=== PATIENT | female | born 1950 ===

== ENCOUNTER 2024-03-30 04:20 | Day surgery (SDC) | payer OTHER ==
[~2024-03-30 04:20] MED LIST: ATACAND32 MG PO; RALOXIFENE HCL60 MG PO; SIMVASTATIN80 MG PO; TERAZOSIN HCL2 M1 PO; TRIJARDY XR 121 EACH PO
[2024-03-30] MEDS ORDERED: PIPERACILLIN/TAZOBACTAM SODIUM 3.375 GM VIAL IV ONE ×2 (08:00→08:15)
[2024-03-30] MEDS ORDERED: HEMOSTATIC MATRIX 1 KIT KIT TOP ONE (08:15)
[2024-03-30] MEDS ORDERED: BUPIVACAINE HCL 30 ML VIAL IJ ONE (08:15)
[2024-03-30] MEDS ORDERED: BUPIVACAINE LIPOSOME/PF 266 MG/20 ML VIAL IJ ONE (08:15)
[2024-03-30] MEDS ORDERED: DIBUCAINE 30 GM TUBE RECTAL ONE (08:15)
[2024-03-30] MEDS ORDERED: POVIDONE-IODINE 118 ML BOTT TOP ONE (08:15)
== END 2024-03-30 14:05 | disposition home or self-care (01) ==
LOC: CIR.AMB 04:20
PROVIDERS: ATTEND Colon & Rectal Surgery
DX: K64.2 Third degree hemorrhoids (principal); K64.4 Residual hemorrhoidal skin tags; I10 Essential (primary) hypertension; E11.9 Type 2 diabetes mellitus without complications